=== PATIENT | female | born 1945 | race Caucasian/White ===

== ENCOUNTER → 2016-09-19 | Outpatient (CLI) | payer BC, MEDICARE ==
[~2016-09-19] MED LIST: FLUOXETINE10 MG PO; GLYBURIDE5 MG PO; HCTZ; METFORMIN1000 MG PO
== END ==
LOC: MC.RAD 07:40
DX: Z12.31 Encounter for screening mammogram for malignant neoplasm of breast (principal)

== ENCOUNTER → 2017-10-23 | Outpatient (CLI) | payer BC, MEDICARE | LOC: MC.RAD 10:06 | DX: Z12.31 Encounter for screening mammogram for malignant neoplasm of breast (principal) ==

== ENCOUNTER 2018-01-21 02:16 | Emergency (ER) | payer BC, MEDICARE ==
[~2018-01-21] VITALS: Ht 162.6 cm; Wt 90.0 kg
[2018-01-21 02:20] VITALS: BP 185/79; TEMP 97.1
[2018-01-21] MEDS ORDERED: NORCO 325 MG-51 TAB PO (04:49)
[2018-01-21 05:24] VITALS: PULSE 70
== END 2018-01-21 05:27 | disposition home or self-care (01) ==
LOC: COL.ER 02:16
DX: S82.141A Displaced bicondylar fracture of right tibia, initial encounter for closed fracture (principal); E11.9 Type 2 diabetes mellitus without complications; Z79.84 Long term (current) use of oral hypoglycemic drugs; W19.XXXA Unspecified fall, initial encounter; Y92.009 Unspecified place in unspecified non-institutional (private) residence as the place of occurrence of the external cause
CPT/HCPCS: J3010; L1846

== ENCOUNTER → 2018-11-19 | Outpatient (CLI) | payer BC, MEDICARE ==
[~2018-11-19] MED LIST changes: +NORCO 325 MG-51 TAB PO
== END ==
LOC: MC.RAD 13:56
DX: Z12.31 Encounter for screening mammogram for malignant neoplasm of breast (principal)

== ENCOUNTER → 2019-11-25 | Outpatient (CLI) | payer BC, MEDICARE | LOC: MC.RAD 10:36 | DX: Z12.31 Encounter for screening mammogram for malignant neoplasm of breast (principal) ==

== ENCOUNTER 2020-03-17 08:01 | Inpatient (IN) | payer BC, MEDICARE ==
[~2020-03-17] VITALS: Ht 157.5 cm; Wt 77.3 kg
[2020-03-17 09:18] LABS: BASO # 0.1 (0.0-0.2); BASO % 0.8 % (0.0-2.0); EOS # 0.2 (0.0-0.7); EOS % 2.1 % (0-4.0); GRAN # 7.6 (1.4-6.5); GRAN % 75.3 % (42.2-75.2); LYMPH # 1.4 (1.2-3.4); LYMPH % 13.5 % (20.0-51.0); MEAN CELL VOLUME 93 fl (80.0-100.0); MEAN CORPUSCULAR HGB CONC 32 g/dl (33.0-37.0); MEAN PLATELET VOLUME 10.7 fl (7.4-10.4); MONO # 0.8 (0.1-0.6); MONO % 7.8 % (1.7-9.3); PLATELET COUNT 501 K/mm3 (130-400); RED BLOOD COUNT 2.48 M/mm3 (4.10-5.30); REDCELL DISTRIBUTION WIDTH-CV 16.3 % (11.5-14.5)
[2020-03-17 09:24] LABS: HEMOGLOBIN 7.3 g/dl (12.5-16.0); MEAN CORPUSCULAR HEMOGLOBIN 29 pg (27.0-31.0)
[2020-03-17 09:33] LABS: ALANINE AMINOTRANSFERASE 10 U/L (4-34); ALBUMIN 3.4 gm/dL (3.5-5.0); ALKALINE PHOSPHATASE 92 U/L (50-136); ANION GAP 8 mmol/L (7-16); AST,SGOT 18 U/L (15-37); BLOOD UREA NITROGEN 18 mg/dL (7-17); CALCIUM 8.7 mg/dL (8.4-10.2); CARBON DIOXIDE 24 mmol/L (22-30); CHLORIDE 97 mmol/L (98-107); CREATININE, serum 1.23 (0.52-1.25); GLUCOSE 241 mg/dL (74-106); LIPASE 73 U/L (23-300); POTASSIUM 4.5 mmol/L (3.4-5.0); SODIUM 129 mmol/L (137-145); TOTAL PROTEIN 6.4 gm/dL (6.4-8.2)
[2020-03-17 09:34] LABS: INR 1.2 (0.8-3.0); PROTHROMBIN TIME 13.2 SECONDS (9.7-12.8)
[2020-03-17 09:37] LABS: PARTIAL THROMBOPLASTIN TIME 32.9 SECONDS (26.0-37.0)
[2020-03-17 09:49] LABS: TROPONIN-I < 0.012 ng/mL (0.000-0.035)
[2020-03-17] MEDS ORDERED: TRULICITY1.5 MG/0.5 (11:36)
[2020-03-17 16:18] LABS: HEMATOCRIT 22.3 % (37.0-47.0)
[2020-03-17 16:21] LABS: IRON,SERUM 71 ug/dL (35-150)
[2020-03-17 16:31] LABS: TOTAL IRON BINDING CAPACITY 323 ug/dL (265-497)
[2020-03-17] MEDS ORDERED: ULTRAM 50MG TAB50 MG PO (17:09)
[2020-03-17] MEDS ORDERED: NORCO 325 MG-7.1 TAB PO (17:10)
[2020-03-17] MEDS ORDERED: TOPROL XL 25MG25 MG (17:11)
[2020-03-17] MEDS ORDERED: GLUCOPHAGE1000 MG PO ×2 (17:14→17:15)
[2020-03-17] MEDS ORDERED: PROZAC 20MG20 MG PO (17:16)
[2020-03-17] MEDS ORDERED: GLUCOTROL 5M5 MG/TAB PO (17:17)
[2020-03-17] MEDS ORDERED: CATAPRES-TTS 30.3 MG TD (17:18)
--- NOTE | 2020-03-17 20:30 | NUR ---
Initial shift assessment done- denies any stools or emesis since admission, VSS, NPO for UGI in the AM, Tele on, IV fluids of NS at 100cc/hr, Right knee dressing dry and intact, some edema to right leg- Up to bathroom with walker aand assist- slow but steady on feet.
[2020-03-17 21:39] VITALS: BP 144/51; PULSE 70; TEMP 98.2
[2020-03-17 23:16] LABS: HEMATOCRIT 20.7 % (37.0-47.0); HEMOGLOBIN 6.5 g/dl (12.5-16.0)
[2020-03-18] VITALS (12 sets, daily range): BP systolic 131–178; BP diastolic 49–92; PULSE 66–77; TEMP 97.8–99.2
--- NOTE | 2020-03-18 00:15 | NUR ---
[facility] called regarding HGB 6.5,, order to give 1 unit of PRBC,s.
--- NOTE | 2020-03-18 01:06 | NUR ---
Unit of blood started per protocol-- nurse at bedside for first 15 minutes to monitor for S/S of adverse reaction-
--- NOTE | 2020-03-18 04:03 | NUR ---
Blood completed= no adverse reactions-patient resting quietly
--- NOTE | 2020-03-18 06:37 | NUR ---
Pt up tobathroom-voided,did brush her teeth at sink--back to bed--Lab here at 0550to draw repeat HGB- Antibiotic: ampicillin 2gm was hung at 0630 -- VSS,ready for UGI
[2020-03-18 07:50] LABS: BASO # 0.1 (0.0-0.2); BASO % 0.7 % (0.0-2.0); EOS # 0.3 (0.0-0.7); EOS % 3.4 % (0-4.0); GRAN # 4.7 (1.4-6.5); GRAN % 64.5 % (42.2-75.2); LYMPH # 1.6 (1.2-3.4); LYMPH % 22.3 % (20.0-51.0); MEAN CELL VOLUME 93 fl (80.0-100.0); MEAN CORPUSCULAR HGB CONC 32 g/dl (33.0-37.0); MEAN PLATELET VOLUME 11.2 fl (7.4-10.4); MONO # 0.6 (0.1-0.6); MONO % 8.5 % (1.7-9.3); RED BLOOD COUNT 2.52 M/mm3 (4.10-5.30); REDCELL DISTRIBUTION WIDTH-CV 15.9 % (11.5-14.5)
[2020-03-18 08:14] LABS: CALCIUM 8.5 mg/dL (8.4-10.2); CREATININE, serum 1.13 (0.52-1.25); POTASSIUM 4.3 mmol/L (3.4-5.0)
[2020-03-18 08:53] LABS: HEMATOCRIT 23.4 % (37.0-47.0); HEMOGLOBIN 7.5 g/dl (12.5-16.0); MEAN CORPUSCULAR HEMOGLOBIN 30 pg (27.0-31.0)
[2020-03-18 08:55] LABS: PLATELET COUNT 397 K/mm3 (130-400)
--- NOTE | 2020-03-18 09:12 | NUR ---
Initial visit; Patient thanked Archival Records Clerk for offering prayer and God's blessings.
--- NOTE | 2020-03-18 09:35 | NUR ---
Pt awake and alert, returned from endoscopy, no C/O pain at this time. Shift assessments complete, left Pt call light in reach, bed in lowest position.
--- NOTE | 2020-03-18 11:15 | NUR ---
Environmental Services Floor Tech met with the patient to complete intake. The patient lives in [place]. Her granddaughter lives with her. The patient has used a walker for a week. She [facility]. She is going to outpatient PT at [facility]. The patient's PCP is Dr. Archer and patient receives medications at [facility]. The patient does not have advanced directives in the EMR but states they are complete and designates Conner Roman. The patient plans to return home and continue outpatient PT. SW contacted Conner #[phone] regarding DPOA-HC paperwork. He is to fax a copy of DPOA-HC to this SW. There are no additional needs.
[2020-03-18 17:39] LABS: HEMATOCRIT 24.4 % (37.0-47.0); HEMOGLOBIN 7.8 g/dl (12.5-16.0)
--- NOTE | 2020-03-18 19:30 | NUR ---
Patient assessed at this time. Alert and oriented x 4, and able to make needs known. Reported level 3 pain to right knee. Wanted to wait for more pain medication. Peripheral INT to left AC. Denies SOB and dyspnea. LS CTA. Respirations even and unlabored. HRR. Capillary refill less than 3 seconds. Non-tenting skin turgor. BSAx4. Abdomen soft and non-tender. 1+ edema RLE. Dressing to surgical site on right knee is CDI. One assist with walker. Voices no questions, needs, or concerns at this time. Resting in bed with call light within reach.
[2020-03-18 20:58] LABS: FOLATE (FOLIC ACID) 15.1 ng/mL (7.0-31.4)
--- NOTE | 2020-03-18 21:30 | NUR ---
Patient complaining of pain to right knee and requesting pain medication. Also requested something for anxiety. Called and spoke with IGOR Fong. New order for one time Ativan. Given Ativan and PRN [place] as requested. Voices no further questions, needs, or concerns at this time. Resting in recliner with call light mihir levi.
[2020-03-19 03:18] VITALS: BP 153/62; PULSE 64; TEMP 97.7
--- NOTE | 2020-03-19 05:18 | NUR ---
Patient has voiced no further questions, needs, or concerns at this time. Resting in bed with call light within reach.
--- NOTE | 2020-03-19 05:55 | NUR ---
Patient complaining of level 5 pain to right knee. Given PRN [place] for pain as requested. Voices no further questions, needs, or concerns at this time. Resting in bed with call light within reach.
[2020-03-19 07:15] VITALS: BP 137/51; PULSE 68; TEMP 97.7
[2020-03-19 07:55] LABS: HEMATOCRIT 25.2 % (37.0-47.0); HEMOGLOBIN 7.9 g/dl (12.5-16.0)
[2020-03-19 08:09] LABS: CALCIUM 8.5 mg/dL (8.4-10.2); CREATININE, serum 1.26 (0.52-1.25); POTASSIUM 3.9 mmol/L (3.4-5.0)
--- NOTE | 2020-03-19 08:38 | NUR ---
Pt assessment complete. Pt is sitting up in bed upon entry, she is A/O x4. Her breathing is even and unlabored on RA. Pt denies SOB. No Pain this am. Denies N/V/D. No further black stools. Asking if she gets to go home today. Offered for patient to get up into the recliner she declined at this time. Site to knee CDI, swelling to RLE. No needs at this time.
--- NOTE | 2020-03-19 10:28 | NUR ---
Took aquacell off of knee, steristrips in place, edges approximated. No abena in place, will leave open to air. No needs at this time.
[2020-03-19] MEDS ORDERED: XARELTO10 MG PO (11:06)
[2020-03-19 11:10] VITALS: BP 149/67; PULSE 63; TEMP 97.7
[2020-03-19] MEDS ORDERED: FERROUS SU325 MG/TAB PO (11:30)
[2020-03-19] MEDS ORDERED: PROTONIX 40MG T40 MG PO (11:31)
--- NOTE | 2020-03-19 12:52 | NUR ---
Discharge paperwork and instructions reviewed with patient. All questions answered at this time. IV to LAC dc'd catheter tip intact.
== END 2020-03-19 13:20 | disposition home or self-care (01) | DRG 378 ==
LOC: COL.ER 08:01 → MEDICAL 11:40
PROVIDERS: Emergency Medicine; Internal Medicine Gastroenterology; Physician Assistant; ADMIT Hospitalist
PROC: 0DB78ZX Excision of Stomach, Pylorus, Via Natural or Artificial Opening Endoscopic, Diagnostic (ICD-10-PCS; principal; 2020-03-18 07:30)
DX: K27.4 Chronic or unspecified peptic ulcer, site unspecified, with hemorrhage (principal); E87.1 Hypo-osmolality and hyponatremia; K29.71 Gastritis, unspecified, with bleeding; F32.9 Major depressive disorder, single episode, unspecified; D47.3 Essential (hemorrhagic) thrombocythemia; M19.90 Unspecified osteoarthritis, unspecified site; E11.9 Type 2 diabetes mellitus without complications; Z96.651 Presence of right artificial knee joint; I10 Essential (primary) hypertension; D50.9 Iron deficiency anemia, unspecified; E78.5 Hyperlipidemia, unspecified; T39.395A Adverse effect of other nonsteroidal anti-inflammatory drugs [NSAID], initial encounter
CPT/HCPCS: 99222-AI; 99231-AI; 99239; C9113; J0290; J1815; J2270; J2405; J2704; J7030; P9016

== ENCOUNTER 2020-03-28 16:15 | Emergency (ER) | payer BC, MEDICARE ==
[~2020-03-28] VITALS: Ht 157.5 cm; Wt 79.5 kg
[~2020-03-28 16:15] MED LIST changes: +CATAPRES-TTS 30.3 MG TD; +FERROUS SU325 MG/TAB PO; +GLUCOPHAGE1000 MG PO; +GLUCOTROL 5M5 MG/TAB PO; +NORCO 325 MG-7.1 TAB PO; +PROTONIX 40MG T40 MG PO; +PROZAC 20MG20 MG PO; +TOPROL XL 25MG25 MG; +TRULICITY1.5 MG/0.5; +ULTRAM 50MG TAB50 MG PO; +XARELTO10 MG PO
[2020-03-28 16:25] VITALS: TEMP 97.8
[2020-03-28 16:39] LABS: BASO # 0.1 (0.0-0.2); BASO % 0.7 % (0.0-2.0); EOS # 0.2 (0.0-0.7); EOS % 1.8 % (0-4.0); GRAN # 7.6 (1.4-6.5); GRAN % 76.1 % (42.2-75.2); HEMATOCRIT 35.1 % (37.0-47.0); LYMPH # 1.4 (1.2-3.4); LYMPH % 13.9 % (20.0-51.0); MEAN CELL VOLUME 93 fl (80.0-100.0); MEAN CORPUSCULAR HEMOGLOBIN 29 pg (27.0-31.0); MEAN CORPUSCULAR HGB CONC 31 g/dl (33.0-37.0); MONO # 0.7 (0.1-0.6); MONO % 7.2 % (1.7-9.3); PLATELET COUNT 616 K/mm3 (130-400); RED BLOOD COUNT 3.77 M/mm3 (4.10-5.30)
[2020-03-28 16:43] LABS: INR 1.1 (0.8-3.0); PROTHROMBIN TIME 12.4 SECONDS (9.7-12.8)
[2020-03-28 16:46] LABS: PARTIAL THROMBOPLASTIN TIME 30.6 SECONDS (26.0-37.0)
[2020-03-28 16:53] LABS: ALANINE AMINOTRANSFERASE 10 U/L (4-34); ALKALINE PHOSPHATASE 110 U/L (50-136); ANION GAP 16 mmol/L (7-16); AST,SGOT 18 U/L (15-37); BILIRUBIN,TOTAL 1.6 mg/dL (0.0-1.0); BLOOD UREA NITROGEN 15 mg/dL (7-17); CARBON DIOXIDE 20 mmol/L (22-30); CHLORIDE 94 mmol/L (98-107); CREATININE, serum 1.42 (0.52-1.25); GLUCOSE 172 mg/dL (74-106); POTASSIUM 4.3 mmol/L (3.4-5.0); SODIUM 130 mmol/L (137-145); TOTAL PROTEIN 7.3 gm/dL (6.4-8.2)
[2020-03-28 17:06] LABS: TROPONIN-I < 0.012 ng/mL (0.000-0.035)
[2020-03-28] MEDS ORDERED: ZOFRAN ODT4 MG PO (17:49)
[2020-03-28 17:53] VITALS: BP 138/76; PULSE 69
== END 2020-03-28 18:00 | disposition home or self-care (01) ==
LOC: COL.ER 16:15
PROVIDERS: Emergency Medicine
DX: R11.2 Nausea with vomiting, unspecified (principal); Z88.2 Allergy status to sulfonamides; Z79.84 Long term (current) use of oral hypoglycemic drugs
CPT/HCPCS: C9113; J7030

== ENCOUNTER → 2021-01-05 | Outpatient (CLI) | payer BC, MEDICARE ==
[~2021-01-05] MED LIST changes: +ZOFRAN ODT4 MG PO
== END ==
LOC: MC.RAD 13:29
DX: Z12.31 Encounter for screening mammogram for malignant neoplasm of breast (principal)

== ENCOUNTER → 2021-02-15 | Outpatient (CLI) | payer BC, MEDICARE | LOC: DIA.ED 07:41 | DX: E11.65 Type 2 diabetes mellitus with hyperglycemia (principal); Z79.4 Long term (current) use of insulin; E78.5 Hyperlipidemia, unspecified; I10 Essential (primary) hypertension | CPT/HCPCS: G0108 ==

== ENCOUNTER 2022-10-20 16:15 | Inpatient (IN) | payer MEDICARE, OTHER ==
[~2022-10-20] VITALS: Ht 157.5 cm; Wt 84.4 kg
[~2022-10-20 16:15] MED LIST changes: +ADVIL200 MG PO; +CATAPRES-TTS 10.1 M1 TD; +LANTUS SOLOS100 U/ML SQ; +ONE-A-DAY WOMEN1 TAB PO; +OZEMPIC1 MG/0.71 SQ; +PHARMASSURE ZIN50 MG PO; -TOPROL XL 25MG25 MG; +TOPROL XL 25MG25 MG PO; +TYLENOL 500MG500 MG PO
[2022-10-24] MEDS ORDERED: OZEMPIC1 MG/0.71 SQ (19:47)
[2022-10-24] MEDS ORDERED: ZYRTEC 10MG10 MG PO (22:43)
[2022-10-24] MEDS ORDERED: EPA FISH OIL1 SGL PO (22:47)
[2022-10-24] MEDS ORDERED: FLAXSEED OIL1000 MG PO (22:47)
[2022-10-24] MEDS ORDERED: LANTUS SOLOS100 U/ML SQ (22:49)
[2022-10-24] MEDS ORDERED: LUTEIN6 MG (22:51)
[2022-10-24] MEDS ORDERED: LYRICA 50MG CAP50 MG PO (22:53)
[2022-10-24] MEDS ORDERED: PHENERGAN 25 TA25 MG PO (22:54)
[2022-10-24] MEDS ORDERED: VITAMIN D31000 I1 PO (22:56)
[2022-10-24] MEDS ORDERED: ERGOCALCIFER50000 IU PO (22:56)
[2022-10-27] MEDS ORDERED: NORVASC 10MG10 MG PO (12:55)
[2022-10-27] MEDS ORDERED: APRESOLINE 25MG25 MG PO (12:56)
[2022-11-24 10:20] LABS: MEAN CELL VOLUME 95 fl (80.0-100.0); MEAN CORPUSCULAR HEMOGLOBIN 31 pg (27-31); MEAN CORPUSCULAR HGB CONC 33 g/dl (33.0-37.0); MEAN PLATELET VOLUME 10.4 fl (7.4-10.4); PLATELET COUNT 283 K/mm3 (130-400); RED BLOOD COUNT 3.89 M/mm3 (4.10-5.30); REDCELL DISTRIBUTION WIDTH-CV 14.4 % (11.5-14.5)
[2022-11-24 10:21] LABS: HEMATOCRIT 36.8 % (37.0-47.0)
[2022-11-24 10:36] LABS: CALCIUM 8.8 mg/dL (8.4-10.2); CREATININE, serum 1.64 mg/dL (0.57-1.11); POTASSIUM 4.6 mmol/L (3.5-4.5)
[2022-11-25] VITALS (8 sets, daily range): BP systolic 109–150; BP diastolic 37–63; PULSE 66–74; TEMP 98
[2022-11-25] MEDS ORDERED: NORVASC 5MG5 MG/TAB PO (12:56)
--- NOTE | 2022-11-25 16:50 | NUR ---
Patient arrived to the unit from pacu to room 328. Patient alert and oriented x 4. 5 lap site in the abdomen with skin glued dry and intact. Galloway catheter in place. Pulses presents, SCD's applied on. Patient and family oriented to room and the use of call. Family at the bedside, VSS. Patient educated on ERAS protocol of not using straw and drinking carbonated drinks. Patient verbalized understanding. Call gunter within reach.
--- NOTE | 2022-11-25 18:30 | NUR ---
Dr. Blaine Abel, at the bedside for assessment, provider increased IVF to 75ml/hr due to low diastolic and ordered some labs. Patient not in distress at this time. Family at the bedside.
[2022-11-25 19:28] LABS: HEMOGLOBIN 10.3 g/dl (12.5-16.0); MEAN CELL VOLUME 95 fl (80.0-100.0); MEAN CORPUSCULAR HEMOGLOBIN 31 pg (27-31); MEAN CORPUSCULAR HGB CONC 33 g/dl (33.0-37.0); MEAN PLATELET VOLUME 10.9 fl (7.4-10.4); PLATELET COUNT 248 K/mm3 (130-400); RED BLOOD COUNT 3.33 M/mm3 (4.10-5.30); REDCELL DISTRIBUTION WIDTH-CV 14.3 % (11.5-14.5)
[2022-11-25 19:37] LABS: HEMATOCRIT 31.6 % (37.0-47.0)
[2022-11-25 19:45] LABS: CALCIUM 8.5 mg/dL (8.4-10.2); CREATININE, serum 1.87 mg/dL (0.57-1.11); POTASSIUM 4.5 mmol/L (3.5-4.5)
--- NOTE | 2022-11-25 20:00 | NUR ---
SHIFT ASSESSMENT COMPLETE. VSS. A&O X4. PATIENT RESTING IN BED WITH DAUGHTER AT BEDSIDE. ALL NIGHT MEDS GIVEN PER ORDER. PATIENT HAVING PAIN 7/10. PAIN MEDS GIVEN PER ORDER. PATIENT HAS NO COMPLAINTS OR OTHER REQUEST AT THIS TIME. CALL LIGHT IN REACH.
[2022-11-26 00:22] VITALS: BP 107/42; PULSE 67; TEMP 98.3
--- NOTE | 2022-11-26 03:30 | NUR ---
SILVER REMOVED PER MD ORDER. PATIENT TOLERATED WELL.
[2022-11-26 03:39] VITALS: BP 109/45; PULSE 63; TEMP 98.5
[2022-11-26 05:47] LABS: BASO # 0.1 K/mm3 (0.0-0.2); BASO % 0.6 % (0.0-2.0); EOS # 0.1 K/mm3 (0.0-0.7); EOS % 1.2 % (0.0-4.0); GRAN # 7.4 K/mm3 (1.4-6.5); GRAN % 78.3 % (42.2-75.2); LYMPH # 1.2 K/mm3 (1.2-3.4); LYMPH % 13.1 % (20.0-51.0); MEAN CELL VOLUME 95 fl (80.0-100.0); MEAN CORPUSCULAR HGB CONC 32 g/dl (33.0-37.0); MONO # 0.6 K/mm3 (0.1-0.6); MONO % 6.6 % (1.7-9.3); PLATELET COUNT 206 K/mm3 (130-400); RED BLOOD COUNT 3.08 M/mm3 (4.10-5.30); REDCELL DISTRIBUTION WIDTH-CV 14.2 % (11.5-14.5)
[2022-11-26 05:53] LABS: HEMATOCRIT 29.3 % (37.0-47.0); HEMOGLOBIN 9.4 g/dl (12.5-16.0); MEAN CORPUSCULAR HEMOGLOBIN 31 pg (27-31)
[2022-11-26 06:07] LABS: CALCIUM 8.1 mg/dL (8.4-10.2); CREATININE, serum 1.84 mg/dL (0.57-1.11); POTASSIUM 4.4 mmol/L (3.5-4.5)
[2022-11-26 08:03] VITALS: BP 103/43; PULSE 66; TEMP 97.6
--- NOTE | 2022-11-26 08:30 | NUR ---
PT RESTING IN BED WITH ACHING PAIN 4/10 IN ABDOMEN. PAIN MEDICAITON DENIED AT THIS TIME. PT UP TO BATHROOM STANDBY ASSIST AND WALKER WITH STEADY GAIT. 6 LAP SITES TO SKIN GLUE WITH EDGES WELL APPROX. BLADDER SCAN SHOWED 236 MLS, PT VOIDED 100 MLS. WILL CONTINUE TO MONITOR.
--- NOTE | 2022-11-26 09:08 | NUR ---
Sw met with pt to complete intake. Pt reports nothing has change since last admit. Pt reports her back is getting better. Pt lives at home alone, and is independent and uses a walker till next month. DPOA-HC is Conner Daly @ [phone] and renee Klein @ [phone]. PCP is Dr. Archer and gets medications from [facility]. Pt gets HH services 3x week from [facility] currently and has no concerns. No other needs at this time. SW await for further recommendations and follow up as needed. DC: Home.
[2022-11-26 12:04] VITALS: BP 137/56; PULSE 68; TEMP 98.9
[2022-11-26] MEDS ORDERED: NORCO 325 MG-51 TAB PO (12:50)
--- NOTE | 2022-11-26 13:49 | NUR ---
[employer] Operators rounds: [employer] Operators visit offered but declined because Patient's Obstetrical Anesthesiologist from [place] has already visited.
--- NOTE | 2022-11-26 14:46 | NUR ---
PT AND FAMILY PROVIDED DISCHARGE INSTRUCTIONS. DISCUSSED FOLLOWUP APPOINTMENTS, NEW MEDICAITONS, SIGNS OF INFECTION, AND SIGNS TO CALL THE DR. NO QUESTIONS AT THIS TIME. IV REMOVED. PT AND BELONGINGS ESCORTED OUT OF BUILDING AT THIS TIME.
== END 2022-11-26 14:46 | disposition home or self-care (01) | DRG 657 ==
LOC: SURG 11-10 07:30 → INPTSU 11-25 11:04 → SURG 11-25 13:00
PROVIDERS: Internal Medicine; ADMIT Urology
PROC: 8E0W4CZ Robotic Assisted Procedure of Trunk Region, Percutaneous Endoscopic Approach (ICD-10-PCS; 2022-11-25)
PROC: 0TT14ZZ Resection of Left Kidney, Percutaneous Endoscopic Approach (ICD-10-PCS; principal; 2022-11-25 13:00)
DX: C64.2 Malignant neoplasm of left kidney, except renal pelvis (principal); E87.1 Hypo-osmolality and hyponatremia; Z66 Do not resuscitate; E66.9 Obesity, unspecified; I70.1 Atherosclerosis of renal artery; F32.A Depression, unspecified; E11.22 Type 2 diabetes mellitus with diabetic chronic kidney disease; M54.30 Sciatica, unspecified side; E78.5 Hyperlipidemia, unspecified; M19.90 Unspecified osteoarthritis, unspecified site; M81.0 Age-related osteoporosis without current pathological fracture; I72.2 Aneurysm of renal artery; I95.2 Hypotension due to drugs; I12.9 Hypertensive chronic kidney disease with stage 1 through stage 4 chronic kidney disease, or unspecified chronic kidney disease; N18.9 Chronic kidney disease, unspecified; T50.995A Adverse effect of other drugs, medicaments and biological substances, initial encounter; Z88.2 Allergy status to sulfonamides; Z90.710 Acquired absence of both cervix and uterus; Z90.49 Acquired absence of other specified parts of digestive tract; Z88.8 Allergy status to other drugs, medicaments and biological substances; Z79.4 Long term (current) use of insulin; Z79.899 Other long term (current) drug therapy; Z68.35 Body mass index [BMI] 35.0-35.9, adult
CPT/HCPCS: A4314; A9284; J0360; J0690; J1170; J1650; J1815; J2250; J2405; J2704; J2795; J3010; J7030; J7120

== ENCOUNTER 2022-12-22 14:40 | Outpatient (CLI) | payer OTHER, MEDICARE ==
[~2022-12-22 14:40] MED LIST changes: +APRESOLINE 25MG25 MG PO; +EPA FISH OIL1 SGL PO; +ERGOCALCIFER50000 IU PO; +FLAXSEED OIL1000 MG PO; +LUTEIN6 MG; +LYRICA 50MG CAP50 MG PO; +NORVASC 10MG10 MG PO; +NORVASC 5MG5 MG/TAB PO; +PHENERGAN 25 TA25 MG PO; +VITAMIN D31000 I1 PO; +ZYRTEC 10MG10 MG PO
[2022-12-22 15:33] VITALS: BP 162/73; PULSE 72; TEMP 98
--- NOTE | 2022-12-22 16:12 | NUR ---
pt tolerated first reclast infusion well. pt remained in the unit and was observed for 30 minutes following the infusion. pt remained free from signs and symptoms of allergic/adverse reaction during this time. IV was discontinued upon discharge and pt was assisted to main lobby via wheelchair. pt remained free from concerns and complaints upon discharge.
== END 2022-12-22 16:34 | disposition home or self-care (01) ==
LOC: EUO 14:40
DX: M81.0 Age-related osteoporosis without current pathological fracture (principal)
CPT/HCPCS: J3489

== ENCOUNTER 2023-11-15 21:45 | Emergency (ER) | payer OTHER, MEDICARE ==
[~2023-11-15] VITALS: Ht 157.5 cm; Wt 79.1 kg
[~2023-11-15 21:45] MED LIST changes: +CEPHALEXIN500 M1 PO
[2023-11-15 21:49] VITALS: TEMP 98.1
[2023-11-15] MEDS ORDERED: hydrALAZINE 20 MG/ML 1 ML VIAL IV ONE (22:45)
[2023-11-15] MEDS ORDERED: fentaNYL 50 MCG/ML 2 ML VIAL IV ONE (22:45)
[2023-11-15] MEDS ORDERED: NS 500 ML IV ONE (23:45)
[2023-11-16] MEDS ORDERED: Home HYDROcodone/Acetaminophen 5/325 MG #4 TABS/PACK PO ONE (01:45)
[2023-11-16 02:13] VITALS: BP 135/82; PULSE 80
== END 2023-11-16 02:15 | disposition home or self-care (01) ==
LOC: COL.ER 21:45
DX: S51.012A Laceration without foreign body of left elbow, initial encounter (principal); S00.93XA Contusion of unspecified part of head, initial encounter; E66.9 Obesity, unspecified; W18.30XA Fall on same level, unspecified, initial encounter; Y92.009 Unspecified place in unspecified non-institutional (private) residence as the place of occurrence of the external cause
CPT/HCPCS: J0360; J3010; J7040

== ENCOUNTER 2024-01-16 13:24 | Outpatient (CLI) | payer OTHER, MEDICARE ==
[~2024-01-16] VITALS: Ht 157.5 cm; Wt 77.0 kg
[2024-01-16 13:52] VITALS: BP 174/92; PULSE 73; TEMP 98.4
[2024-01-16] MEDS ORDERED: Denosumab 60 MG/ML SYRINGE SQ ONE (14:00)
--- NOTE | 2024-01-16 14:46 | NUR ---
PT TOLERATED INJECTION WELL. VS REMAINED WITHIN NORMAL LIMITS. PT WAS OBSERVED FOR 20 MINUTES FOLLOWING INJECTION AND REMAINED FREE FROM SIGNS OF ADVERSE REACTION. PT ASSISTED TO MAIN LOBBY VIA WHEELCHAIR. PT FREE FROM ACUTE CONCERNS AND COMPLAINTS UPON DISCHARGE.
== END 2024-01-16 14:47 | disposition home or self-care (01) ==
LOC: EUO 13:24
DX: M81.0 Age-related osteoporosis without current pathological fracture (principal)
CPT/HCPCS: J0897